=== PATIENT | male | born 1960 | race Caucasian/White ===

== ENCOUNTER → 2020-01-18 | Outpatient (CLI) | payer BC, OTHER ==
[~2020-01-18] VITALS: Ht 185.4 cm; Wt 88.5 kg
[~2020-01-18] MED LIST: CELEBREX 200 M200 M1 PO; SYNTHROID50 MCG PO
[2020-01-18 12:48] VITALS: BP 118/82
--- NOTE | 2020-01-18 13:21 | NUR ---
Pain Clinic Assessment: 1. History of Osteoarthritis: Not Applicable History of Rheumatoid Arthritis: Not Applicable 2. Height: 6 ft. 1 in. 185.4 cm. Weight: 195.0 lb. oz. 88.452 kg. Patient's BMI: 25.7 3. Vital Signs: BP: 118/82 Pulse: 70 Resp: 16 Temp: 02 Sat: 98 ECG Mon: 4. Pain Intensity: 9 5. Fall Risk: Dizziness: N Needs help standing or walking: N Fallen in the last 3 months: N Fall risk comments: 6. Patient on Blood Thinner: None 7. History of Hypertension: N 8. Opioid Therapy greater than 6 weeks: N Opiate Contract Signed: 9. Risk Assessment Tool Provided: 10. Functional Assessment Tool: 11. Recreational Drug Use: Never Drug Type: Tobacco Use: Never Smoker Tobacco Type: Amount or Packs/day: How Many Years: Alcohol Use: Yes Frequency: Weekly Quant: 3
--- NOTE | 2020-01-19 12:32 | HPC ---
[facility] [place] [address] PAIN MANAGEMENT CONSULTATION Name: DAYSITIMAHILDAJohnsonLASHANDA Room #: REG [facility]enniferJennifer#: [id number] Admission: 01/18/20 Attend Phys: Farrukh Benites DO Discharge: Date of : 64 Report #: [id number] THIS REPORT FOR: cc: Tushar Joy II, MD, II,Farrukh Willis MD, DO ~ DATE OF SERVICE: 01/18/2020 REFERRING PHYSICIAN: Dr. Tushar Joy CHIEF COMPLAINT: Low back pain, bilateral lower extremity pain with paresthesias, right greater than left. HISTORY OF PRESENT ILLNESS: As you know, the patient is a very pleasant 59-year-old male who reports a longstanding history of low back pain, right lower extremity pain with paresthesias that began 05/2019. As you are aware, the patient has undergone an L4-L5 interbody fusion through [facility] facility in the past. The patient reports that this procedure did very well at alleviating symptoms. He states he was in his normal state of health when his pain reoccurred and began to progress. He has been dealing with his symptoms with medication management, but is noticing that the effects have begun to wane. He has been referred to our service to discuss treatment options for suspected lumbar radiculopathy. The patient is currently taking hydrocodone for pain control and notes some improvement with the use. The patient reports today his pain is continuous, steady and constant. He describes his pain as aching, gnawing, stabbing, numbness and tingling. He places current pain score 9/10 daily, average is 7-8/10, worst pain has been is 10/10. The patient states that activities tend to exacerbate symptoms. He is improved with rest. He has been referred to our service to discuss treatment options for suspected lumbar radiculopathy. PAST MEDICAL HISTORY: Hypothyroidism. PAST SURGICAL HISTORY: L5 interbody fusion. SOCIAL HISTORY: The patient denies tobacco, alcohol, IV or illicit drug use. He is a director of facilities. He is working, not receiving workmen's compensation or is trying to obtain discrete benefits. He is not in litigation in regards to pain. REVIEW OF SYSTEMS: Positive for fatigue and weakness, wearing corrective eyewear, chronic sinus problems with rhinitis, nocturia, incontinence and dribbling with urine, testicular pain, numbness and tingling sensations. All other review of systems negative per 12-point review of systems other than those [facility] [address] [place] [address] PAIN MANAGEMENT CONSULTATION Name: LASHANDA MARTIN Room #: REG [facility]#: [id number] Admission: 01/18/20 Attend Phys: Farrukh Benites DO Discharge: Date of : 64 Report #: [id number] listed in history of present illness. Pain impact score 32 of 70 indicating moderate interference of daily activities secondary to pain. ALLERGIES: No known drug allergies. CURRENT MEDICATIONS: Celecoxib 200 mg twice a day, levothyroxine 50 mcg per day. IMAGING: MRI lumbar spine obtained 01/01/2020 shows T12-L1, L1-L2 and L2-L3 shows only minimal broad-based posterior disk bulging, no significant central canal neural foraminal stenosis. L3-L4 shows minimal broad-based posterior disk bulging severe bilateral facet arthrosis. No central canal stenosis, only [id number] right and mild left foraminal stenosis due to facet spurring. There is graft material indicating interbody fusion. There is again only severe bilateral facet arthrosis. L5-S1, broad-based posterior disk bulge with superimposed shallow central disk protrusion. There is no mass effect upon the descending nerve roots. There is a superimposed right foraminal disk protrusion which markedly effaces and impinges upon the exiting L5 nerve root. There is resultant right neural foraminal stenosis that is severe in nature. There is moderate to severe left neural foraminal stenosis due to facet arthropathy. PHYSICAL EXAMINATION: VITAL SIGNS: Blood pressure 118/82, pulse is 70, respiratory rate 16 and unlabored. The patient is 98% on room air, height 6 feet 1 inch tall, weight 195 pounds, BMI calculated 25.7. GENERAL: Well-developed, well-nourished, well-hydrated 59-year-old male, who appears stated age, placing current pain score 9/10. HEENT: Normocephalic, atraumatic. Pupils equal, round and reactive to light. Extraocular muscles are intact. Sclerae nonicteric without injection. NEUROLOGIC: Cranial nerves 2-12 grossly intact. Speech is fluent. The patient deemed a good historian. LUNGS: Clear. No wheeze, rhonchi, no rales. CARDIOVASCULAR: Regular. No appreciable gallop, no rub. ABDOMEN: Soft, nontender, nondistended, normoactive bowel sounds. EXTREMITIES: Show no clubbing, no cyanosis, and no edema. MUSCULOSKELETAL: Lower extremity strength equal and symmetrical 5/5. Slight giveaway strength noted with hip flexion, knee extension on the right when compared to left. This is due to pain generation. Supine straight leg raising positive on the right. Savanah's test is negative. Modified Gaenslen's positive for axial low back pain. Ankle clonus negative. Babinski is negative. Gait mildly antalgic favoring right lower extremity over left. Muscle bulk and tone equal and symmetrical in lower extremities. Lumbar provocation testing is met with increase in axial back pain, no radiation of symptoms. ASSESSMENT: 1. Lumbar radiculopathy. [facility] [address] [place] [address] PAIN MANAGEMENT CONSULTATION Name: TEENAMORIAHHILDAJohnsonLASHANDA Room #: REG [facility] Levy.#: [id number] Admission: 01/18/20 Attend Phys: Farrukh Benites DO Discharge: Date of : 64 Report #: [id number] 2. Displacement of lumbar intervertebral disk with radiculopathy. 3. Lumbosacral spondylosis with radiculopathy. 4. Lateral recess stenosis of the lumbar spine. 5. Neural foraminal stenosis of lumbar spine. 6. Lumbar degeneration. 7. Chronic intractable pain. PLAN: 1. Based on today's physical exam and history the patient has provided, the description the patient uses in regards to pain as well as location of symptoms, likely source of the patient's pain is a lumbar radiculopathy. The patient and I discussed the physical findings noted in examination today and correlated those findings to the MRI of the lumbar spine obtained early December. It does appear the patient is suffering from lumbar radiculopathy secondary to the disk displacement and lateral recess as well as neural foraminal stenosis at the L5-S1 level. It does appear that he continues to experience severe facet arthropathy changes at the L4-L5 level, but this has had interbody fusion and thus no longer immobile area. The patient's symptoms do correlate to the L5-S1 level. We spent over 18 minutes of time reviewing the patient's MRI and correlating them to the findings that he has currently. We discussed the treatment options available. Following was discussed. We discussed physical therapy, stretching exercises and core strengthening as a treatment option. We discussed medication management utilizing neuropathic pain medications and anti-inflammatory therapy. We discussed lumbar epidural injections under fluoroscopic guidance, spinal cord stimulator therapy and ultimately surgical decompression. After reviewing the risks and benefits of all the proposed treatment options, the patient chose to undergo lumbar epidural injection under fluoroscopic guidance. 2. The patient will establish an appointment with us tomorrow to undergo a lumbar epidural injection. This will allow us time to confirm whether or not the patient needs any prior authorizations before the procedure is completed and to allow the patient to clear his schedule to be able to go home and rest after the appointment. We have established the patient's appointment for tomorrow afternoon to undergo the first in a series of lumbar epidural injections. 3. No medication changes made at today's visit. The patient will continue current medical therapy as previously prescribed. 4. We will see the patient back in followup visit tomorrow to undergo lumbar epidural injection under fluoroscopic guidance. We will then establish appointment for the patient in 31 days to review the efficacy of that epidural injection. The patient has reported that he has sent recent imaging to his previous neurosurgeon to discuss the options for treatment from a surgical standpoint. He is yet to hear back from that surgeon. We will await that discussion to determine if we need to adjust our treatments. 5. We wish to thank Dr. Tushar Joy for the opportunity to see this patient in consultation. We will keep you apprised of his response to the [address] [place] [address] PAIN MANAGEMENT CONSULTATION Name: LASHANDA MARTIN Room #: REG IV[facility] Robles#: [id number] Admission: 01/18/20 Attend Phys: Farrukh Benites DO Discharge: Date of : 64 Report #: [id number] epidural injection requested. Again, we wish to thank you for the opportunity to see this patient in consultation. <ELECTRONICALLY SIGNED> By: Farrukh Benites DO 01/19/20 1232 [id number] [id number] Farrukh Benites DO /nt
== END ==
LOC: PAIN 06:54
DX: M47.27 Other spondylosis with radiculopathy, lumbosacral region (principal); M51.16 Intervertebral disc disorders with radiculopathy, lumbar region; M48.061 Spinal stenosis, lumbar region without neurogenic claudication

== ENCOUNTER → 2020-01-19 | Outpatient (CLI) | payer BC, OTHER ==
[~2020-01-19] VITALS: Ht 185.4 cm; Wt 86.6 kg
[2020-01-19 14:39] VITALS: BP 118/85
--- NOTE | 2020-01-19 14:42 | NUR ---
Pain Clinic Assessment: 1. History of Osteoarthritis: Not Applicable History of Rheumatoid Arthritis: Not Applicable 2. Height: 6 ft. 1 in. 185.4 cm. Weight: 191.0 lb. oz. 86.637 kg. Patient's BMI: 25.2 3. Vital Signs: BP: 118/85 Pulse: 71 Resp: 14 Temp: 02 Sat: 97 ECG Mon: 4. Pain Intensity: 5 5. Fall Risk: Dizziness: N Needs help standing or walking: N Fallen in the last 3 months: N Fall risk comments: 6. Patient on Blood Thinner: None 7. History of Hypertension: N 8. Opioid Therapy greater than 6 weeks: N Opiate Contract Signed: 9. Risk Assessment Tool Provided: 10. Functional Assessment Tool: 11. Recreational Drug Use: Never Drug Type: Tobacco Use: Never Smoker Tobacco Type: Amount or Packs/day: How Many Years: Alcohol Use: Yes Frequency: Quant:
--- NOTE | 2020-01-25 11:29 | HPC ---
[facility] [place] [address] [place] [address] PAIN MANAGEMENT CONSULTATION Name: TEENAMORIAHLASHANDA HICKS [facility] #[facility] [id number] Admission: 01/19/20 Attend Phys: Farrukh Benites DO Discharge: Date of : 64 Report #: [id number] THIS REPORT FOR: cc: Tushar Joy II, MD, II,Farrukh Willis MD, DO ~ DATE OF SERVICE: 01/19/2020 REFERRING PHYSICIAN: Tushar Joy MD CHIEF COMPLAINT: Low back pain, bilateral lower extremity pain with paresthesias, right greater than left. HISTORY OF PRESENT ILLNESS: As you know, the patient is a 59-year-old pleasant male with longstanding history of low back pain, right lower extremity pain with paresthesias and intermittent left lower extremity pain with paresthesias, began in May 2019. The patient has undergone surgery at the L4-L5 level at the [facility] facility with good relief of symptoms initially, but unfortunately symptoms began about 7 months ago and have progressively worsened. He sought evaluation through his primary care physician who referred the patient to our clinic to discuss interventional treatment options. We saw the patient in consultation on 01/18/2020, diagnosed with lumbar radiculopathy secondary to displacement of lumbar intervertebral disk and was provided today's appointment to undergo a lumbar epidural injection to address lumbar radicular pain. He returns today to undergo the procedure. ALLERGIES: No known drug allergies. CURRENT MEDICATIONS: Celecoxib 200 mg twice daily, levothyroxine 50 mcg per day. SOCIAL HISTORY: The patient denies tobacco, alcohol, IV or illicit drug use. 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 He is working, not receiving workmen's compensation, unaccompanied today. IMAGING: No new imaging available. PHYSICAL EXAMINATION: VITAL SIGNS: Blood pressure 118/85, pulse 71, respiratory rate 14 and unlabored. The patient is 97% on room air. Height 6 feet 1 inch tall, weight 191 pounds and BMI calculated 25.2. GENERAL: Well-developed, well-nourished, well-hydrated 59-year-old male appearing stated age. He is placing current pain score at 5/10. HEENT: Normocephalic, atraumatic. Pupils equal, round and reactive. EXTREMITIES: Show no clubbing, no cyanosis, and no edema. [address] [address] PAIN MANAGEMENT CONSULTATION Name: LASHANDA MARTIN Room #: REG IVY Margaret#: [id number] Admission: 01/19/20 Attend Phys: Farrukh Benites DO Discharge: Date of : 64 Report #: [id number] MUSCULOSKELETAL: Lower extremity strength remains symmetrical again today, 12/27. Slight giveaway strength noted with hip flexion, knee extension on the right when compared to left. Seated straight leg raising negative. Supine straight leg raising positive on the right. Gait appears mildly antalgic favoring right lower extremity over left. No ambulatory devices. ASSESSMENT: 1. Symptomatic lumbar radiculopathy. 2. Displacement of lumbar intervertebral disk with radiculopathy. 3. Lumbosacral spondylosis with radiculopathy. 4. Lateral recess stenosis of the lumbar spine. 5. Neural foraminal stenosis of lumbar spine. 6. Lumbar degeneration. 7. Chronic intractable pain. PLAN: 1. The patient returns today in followup visit having requested a lumbar epidural injection under fluoroscopic guidance. The patient was made today's appointment to undergo the procedure. He can go home from this point and rest and recover from the injection. The patient and I did discuss today the risks and the benefits of this procedure. The following risks were discussed with the patient today. We discussed the risks of the procedure, which include, but are not necessarily limited to bleeding, bruising, infection, worsening pain, no relief of pain, also risk of temporary or permanent muscle weakness, temporary or permanent nerve damage, possible paralysis and . The patient states he understood and wished to proceed. 2. No medication changes made at today's visit. The patient will continue current medical therapy as prior prescribed. 3. We will see the patient back in followup visit on an as needed basis for possible next in the series of epidural injections. We have made the patient a tentative appointment for 31 days from today. At that time, we will discuss the efficacy of today's procedure and determine if next in the series might be necessary. PROCEDURE NOTE DESCRIPTION OF PROCEDURE: L5-S1 right paramedian epidural steroid injection under fluoroscopic guidance. This is the first procedure of the first series that the patient is undergoing. After obtaining written consent, the patient was taken back to the fluoroscopy suite, placed in a prone position with pillow under the abdomen to decrease lumbar lordosis. The skin overlying the lumbosacral area was then prepped and [facility] [address] [place] [address] PAIN MANAGEMENT CONSULTATION Name: LASHANDA MARTIN Room #: SHAUN Lockett.#: [id number] Admission: 01/19/20 Attend Phys: Farrukh Benites DO Discharge: Date of : 64 Report #: [id number] draped in aseptic fashion. The L5-S1 vertebral interspace was then identified by AP fluoroscopy. The skin and subcutaneous tissue overlying the target site of injection was anesthetized with 3 mL 1% lidocaine. A 20-gauge 3.5-inch Tuohy needle was then advanced under fluoroscopic guidance towards the epidural space using a right paramedian approach. The epidural space was identified using loss of resistance to air technique. After negative aspiration for heme or cerebrospinal fluid, a total of 1 mL of Omnipaque was injected. A lumbar epidurogram was confirmed using both AP and lateral fluoroscopy. After negative aspiration for heme or cerebrospinal fluid, 5 mL of a solution containing 2 mL 40 mg/mL, 80 mg total triamcinolone along with 3 mL of lidocaine 1% was injected in increments. Contrast spread was noted posterior epidural space. The needle was then retracted approximately half way and needle tract flushed with 1 mL of 1% lidocaine. Needle was then removed. There were no apparent sensory or motor deficits in the lower extremity following the procedure. A sterile bandage was placed over the injection site. The heart rate, pulse, oximetry and blood pressure were continuously monitored after the procedure. There were no apparent complications. The patient tolerated the procedure well and was carefully escorted to the recovery room in stable condition. There were no apparent complications. After meeting discharge criteria, the patient was then discharged home. <ELECTRONICALLY SIGNED> By: Farrukh Benites DO 01/25/20 1129 0821 [id number] Farrukh Benites, DO /nt
== END ==
LOC: PAIN 06:57
PROVIDERS: ATTEND Anesthesiology Pain Medicine
DX: M51.16 Intervertebral disc disorders with radiculopathy, lumbar region (principal); M48.061 Spinal stenosis, lumbar region without neurogenic claudication; M47.27 Other spondylosis with radiculopathy, lumbosacral region; G89.29 Other chronic pain; Z79.899 Other long term (current) drug therapy

== ENCOUNTER → 2020-03-07 | Outpatient (CLI) | payer BC, OTHER ==
[~2020-03-07] VITALS: Ht 185.4 cm; Wt 87.2 kg
--- NOTE | ~2020-03-07 | HPC ---
[address] [address] PAIN MANAGEMENT CONSULTATION Name: LASHANDA MARTIN [id number] Admission: 03/07/20 Attend Phys: Farrukh Benites DO Discharge: Date of : 64 Report #: [id number] THIS REPORT FOR: cc: Tushar Joy II, MD, II,Farrukh Willis MD, DO ~ CC: Farrukh Joy DATE OF SERVICE: 03/07/2020 CHIEF COMPLAINT: Low back pain, bilateral lower extremity pain with paresthesias, right greater than left. HISTORY OF PRESENT ILLNESS: As you know, the patient is a very pleasant 59-year-old male who was referred to our clinic by his primary care physician, Dr. Tushar Joy for evaluation for lumbar radiculopathy. He is undergoing a lumbar epidural injection under fluoroscopic guidance, 01/25/2020 for which he reports improvement in symptoms of greater than 95%. Unfortunately, the patient became involved in a recent move and exacerbated his symptoms. It also caused a significant right shoulder injury for which he is going to have to undergo surgery next week. He has been cleared by his orthopedic surgeon to be able to undergo lumbar epidural injection to address his lumbar radicular symptoms prior to surgery next week. The patient returns today in followup visit, describing pain level of 3-4/10. States his pain is sharp, aching, tender and sore in sensation, exacerbated with sitting, standing, walking, improves with medications, rest and previous epidural injection. He returns today in followup visit for the second in series. ALLERGIES: No known drug allergies. CURRENT MEDICATIONS: Celecoxib 200 mg twice a day, levothyroxine 50 mcg per day. SOCIAL HISTORY: The patient denies tobacco, alcohol, IV or illicit drug use. He is working, not receiving workmen's compensation, unaccompanied today. IMAGING: No new imaging available. PHYSICAL EXAMINATION: VITAL SIGNS: Blood pressure 137/98, pulse 61, respiratory rate 16 and unlabored. The patient is 100% on room air, height 6 feet 1 inches tall, weight ____ pounds, BMI calculated 25.4. GENERAL: Well-developed, well-hydrated 59-year-old male appearing stated age, pain is rated anywhere from 3-4/10. [address] [address] PAIN MANAGEMENT CONSULTATION Name: LASHANDA MARTIN Room #: REG [facility]#: [id number] Admission: 03/07/20 Attend Phys: Farrukh Benites DO Discharge: Date of : 64 Report #: [id number] HEENT: Normocephalic, atraumatic. Pupils equal, round and reactive. EXTREMITIES: Show no clubbing, no cyanosis, no edema. MUSCULOSKELETAL: Lower extremity strength remains symmetrical. Muscle bulk and tone is symmetrical when comparing left lower extremity to right. Seated straight leg raising negative. Supine straight leg raising positive on the right. Savanah's test negative. ASSESSMENT: 1. Symptomatic lumbar radiculopathy. 2. Displacement of lumbar intervertebral disk with radiculopathy. 3. Lumbosacral spondylosis with radiculopathy. 4. Lateral recess stenosis of lumbar spine. 5. Neural foraminal stenosis of lumbar spine. 6. Lumbar degeneration. 7. Chronic intractable pain. PLAN: 1. The patient returns today in followup visit to undergo lumbar epidural injection under fluoroscopic guidance to address lumbar radiculopathy. The patient did very well with previous epidural injection noticing about 95% improvement in overall pain. Unfortunately, the patient was involved in some very heavy lifting during a recent move and this re-exacerbated his symptoms. It also led to shoulder injury, which is going to require surgical correction. The patient has received authorization from his orthopedic surgeon to be able to undergo lumbar epidural injection to address his lumbar radicular symptoms as this will not interfere with the surgery planned for his right shoulder and there are no concerns of steroid exposure prior to the surgery. The patient has been advised of the other risks and benefits of a lumbar epidural injection. These risks include, but are not necessarily limited to bleeding, bruising, infection, worsening pain, no relief of pain, also risk of temporary or permanent muscle weakness, temporary or permanent nerve damage, possible paralysis and . The patient was also advised of the risks, specifically in regards to COVID-19. Steroid exposures have led to increased risk of raiza COVID-19 as steroids do tend to reduce ones immune response and it is also noted that steroids have exacerbated COVID-19 symptoms if patient actively symptoms. The patient states he understands his risks with COVID-19 and wishes to proceed. 2. No medication changes made at today's visit. The patient will continue current medical therapy as previously prescribed. 3. We will see the patient back in followup visit on an as needed basis for possible third and final epidural injection in the 6 months. PROCEDURE NOTE: DESCRIPTION OF PROCEDURE: L5-S1 right paramedian epidural steroid injection under fluoroscopic guidance. [address] [address] PAIN MANAGEMENT CONSULTATION Name: LASHANDA MARTIN Room #: REG [facility]#: [id number] Admission: 03/07/20 Attend Phys: Farrukh Benites DO Discharge: Date of : 64 Report #: [id number] This is the second procedure of the first series that the patient is undergoing. After obtaining written consent, the patient was taken back to the fluoroscopy suite, placed in a prone position with pillow under the abdomen to decrease lumbar lordosis. The skin overlying the lumbosacral area was then prepped and draped in aseptic fashion. The L5-S1 vertebral interspace was then identified by AP fluoroscopy. The skin and subcutaneous tissue overlying the target site of injection was anesthetized with 3 mL 1% lidocaine. A 20-gauge 3-1/2 inch Tuohy needle was then advanced under fluoroscopic guidance towards the epidural space using a right paramedian approach. The epidural space was identified using loss of resistance to air technique. After negative aspiration for heme or cerebrospinal fluid, a total of 1 mL of Omnipaque was injected. A lumbar epidurogram was confirmed using both AP and lateral fluoroscopy. After negative aspiration for heme or cerebrospinal fluid, 5 mL of a solution containing 2 mL 40 mg per mL, 80 mg total triamcinolone was injected in increments. Contrast spread was noted in posterior epidural space. The needle was then retracted approximately half way and needle tract flushed with 1 mL of 1 mL of 1% lidocaine. Needle was then removed. There were no apparent sensory or motor deficits in the lower extremity following the procedure. A sterile bandage was placed over the injection site. The heart rate, pulse, oximetry and blood pressure were continuously monitored after the procedure. There were no apparent complications. The patient tolerated the procedure well and was carefully escorted to the recovery room in stable condition. There were no apparent complications. After meeting discharge criteria, the patient was then discharged home. By: [id number] Farrukh Benites DO /nt
[2020-03-07 09:06] VITALS: BP 137/98
--- NOTE | 2020-03-07 09:16 | NUR ---
Pain Clinic Assessment: 1. History of Osteoarthritis: BACK History of Rheumatoid Arthritis: Not Applicable 2. Height: 6 ft. 1 in. 185.4 cm. Weight: 192.2 lb. oz. 87.181 kg. Patient's BMI: 25.4 3. Vital Signs: BP: 137/98 Pulse: 61 Resp: 16 Temp: 02 Sat: 100 ECG Mon: 4. Pain Intensity: 3-4 5. Fall Risk: Dizziness: N Needs help standing or walking: N Fallen in the last 3 months: N Fall risk comments: 6. Patient on Blood Thinner: None 7. History of Hypertension: N 8. Opioid Therapy greater than 6 weeks: N Opiate Contract Signed: 9. Risk Assessment Tool Provided: 10. Functional Assessment Tool: 11. Recreational Drug Use: Never Drug Type: Tobacco Use: Never Smoker Tobacco Type: Amount or Packs/day: How Many Years: Alcohol Use: Yes Frequency: Daily Quant: 1-2
== END | disposition home or self-care (01) ==
LOC: PAIN 06:51
PROVIDERS: ATTEND Anesthesiology Pain Medicine
DX: M51.16 Intervertebral disc disorders with radiculopathy, lumbar region (principal); M47.27 Other spondylosis with radiculopathy, lumbosacral region; M48.061 Spinal stenosis, lumbar region without neurogenic claudication; G89.29 Other chronic pain; Z98.890 Other specified postprocedural states; Z79.899 Other long term (current) drug therapy

== ENCOUNTER → 2020-06-27 | Outpatient (CLI) | payer BC, OTHER ==
[~2020-06-27] VITALS: Ht 185.4 cm; Wt 90.4 kg
[2020-06-27 10:26] VITALS: BP 129/91
--- NOTE | 2020-06-27 10:37 | NUR ---
Pain Clinic Assessment: 1. History of Osteoarthritis: BACK History of Rheumatoid Arthritis: Not Applicable 2. Height: 6 ft. 1 in. 185.4 cm. Weight: 199.2 lb. oz. 90.357 kg. Patient's BMI: 26.3 3. Vital Signs: BP: 129/91 Pulse: 64 Resp: 14 Temp: 02 Sat: 100 ECG Mon: 4. Pain Intensity: 4 5. Fall Risk: Dizziness: N Needs help standing or walking: N Fallen in the last 3 months: N Fall risk comments: 6. Patient on Blood Thinner: None 7. History of Hypertension: N 8. Opioid Therapy greater than 6 weeks: N Opiate Contract Signed: 9. Risk Assessment Tool Provided: HEIDI 10. Functional Assessment Tool: 11. Recreational Drug Use: Never Drug Type: Tobacco Use: Never Smoker Tobacco Type: Amount or Packs/day: How Many Years: Alcohol Use: Yes Frequency: Weekly Quant:
--- NOTE | 2020-06-28 11:27 | HPC ---
[facility] [address] [place] [address] PAIN MANAGEMENT CONSULTATION Name: MINHJACQUELYNLASHANDA Room #: REG [facility]..#: [id number] Admission: 06/27/20 Attend Phys: Farrukh Benites DO Discharge: Date of : 64 Report #: [id number] CC: Farrukh Joy DATE OF SERVICE: 06/27/2020 CHIEF COMPLAINT: Low back pain, right lower extremity pain with paresthesias. HISTORY OF PRESENT ILLNESS: As you know, the patient is a very pleasant 60-year-old male returning in followup visit with recurrence of low back pain, right lower extremity pain with paresthesias that he places at a 4/10. The patient reports with the previous epidural injection, he received 90% improvement in overall pain lasting for nearly 3 months. Unfortunately, his symptoms have begun to return. He describes them as chronic burning and dull in sensation, exacerbated with sitting and standing for long periods of time, improves with heat and cold compresses, repositioning and the previous lumbar epidural injection. He has returned today in followup visit to undergo next in the series of epidural injections. He has denied injury or trauma. ALLERGIES: No known drug allergies. CURRENT MEDICATIONS: Celecoxib 200 mg once a day, levothyroxine 50 mcg per day. SOCIAL HISTORY: The patient denies tobacco, alcohol or IV illicit drug use. He is working, not receiving workmen's compensation, unaccompanied today. IMAGING: No new imaging available. PHYSICAL EXAMINATION: VITAL SIGNS: Blood pressure 129/91, pulse is 64, respiratory rate 14 and unlabored. The patient is 100% on room air, height 6 feet 1 inch tall, weight 199.2 pounds, BMI calculated 26.3. GENERAL: Well-developed, well-nourished, well-hydrated 60-year-old male appearing stated age, pain is rated around 4/10. HEENT: Normocephalic, atraumatic. Pupils equal, round and reactive. NEUROLOGIC: Speech fluent. The patient deemed an excellent historian. EXTREMITIES: Show no clubbing, no cyanosis, no edema. MUSCULOSKELETAL: Lower extremity strength equal and symmetrical 5/5. He is intact to light touch from L1 through S2 dermatomes. Seated straight leg raising negative. Supine straight leg raising positive on the right. Gait appears normal. Stance, slightly forward flexed lumbar spine, well-healed surgical scars over the lumbar region. ASSESSMENT: 1. Symptomatic lumbar radiculopathy. 2. Displacement of lumbar intervertebral disk with radiculopathy. 3. Lumbosacral spondylosis with radiculopathy. 4. Lateral recess stenosis of lumbar spine. 5. Neural foraminal stenosis of lumbar spine. 6. Lumbar degeneration. 7. Chronic intractable pain. PLAN: 1. The patient returns today in followup visit having noted 90% improvement in overall pain with the epidural injection provided at the last visit. Unfortunately, his symptoms have begun to return. He is now placing his pain score around 4/10 with symptoms mainly involving low back and right lower extremity. He returns today in followup visit requesting to undergo next in the series of lumbar epidural injections to build on success of previous intervention. The patient denies injury or trauma that may have led to symptom redevelopment. He has had no changes in medical history that would preclude the patient from undergoing an epidural injection today. He has been advised risks and benefits of the procedure, states understood and wished to proceed. 2. No medication changes made at today's visit. The patient will continue current medical therapy as prior prescribed. 3. We plan to see the patient back in followup visit on an as needed basis for possible next in the series of lumbar epidural injections. We are hopeful the patient will see good and prolonged benefit with today's procedure. PROCEDURE NOTE DESCRIPTION OF PROCEDURE: L5-S1 right paramedian epidural steroid injection under fluoroscopic guidance. This is the third procedure of the first series that the patient is undergoing. After obtaining written consent, the patient was taken back to the fluoroscopy suite, placed in a prone position with pillow under the abdomen to decrease lumbar lordosis. The skin overlying the lumbosacral area was then prepped and draped in aseptic fashion. The L5-S1 vertebral interspace was then identified by AP fluoroscopy. The skin and subcutaneous tissue overlying the target site of injection was anesthetized with 3 mL 1% lidocaine. A 20-gauge 3-1/2 Tuohy needle was then advanced under fluoroscopic guidance towards the epidural space using a right paramedian approach. The epidural space was identified using loss of resistance to air technique. After negative aspiration for heme or cerebrospinal fluid, a total of 1 mL of Omnipaque was injected. A lumbar epidurogram was confirmed using both AP and lateral fluoroscopy. After negative aspiration for heme or cerebrospinal fluid, 5 mL of a solution containing 2 mL 40 mg per mL, 80 mg total triamcinolone along with 3 mL of lidocaine 1% was injected in increments. Contrast spread was noted post epidural space. The needle was then retracted approximately half way and needle tract flushed with 1 mL of 1% lidocaine. Needle was then removed. There were no apparent sensory or motor deficits in the lower extremity following the procedure. A sterile bandage was placed over the injection site. The heart rate, pulse, oximetry and blood pressure were continuously monitored after the procedure. There were no apparent complications. The patient tolerated the procedure well and was carefully escorted to the recovery room in stable condition. There were no apparent complications. After meeting discharge criteria, the patient was then discharged home. <ELECTRONICALLY SIGNED> By: Farrukh Benites DO 06/28/20 1127 1204 1305 Farrukh Benites DO /nt
== END | disposition home or self-care (01) ==
LOC: PAIN 06:41
PROVIDERS: ATTEND Anesthesiology Pain Medicine
DX: M51.16 Intervertebral disc disorders with radiculopathy, lumbar region (principal); M47.27 Other spondylosis with radiculopathy, lumbosacral region; M47.26 Other spondylosis with radiculopathy, lumbar region; M48.061 Spinal stenosis, lumbar region without neurogenic claudication; G89.29 Other chronic pain; Z98.890 Other specified postprocedural states; Z79.899 Other long term (current) drug therapy

== ENCOUNTER → 2020-08-15 | Outpatient (CLI) | payer BC, OTHER ==
[~2020-08-15] VITALS: Ht 182.9 cm; Wt 87.3 kg
[~2020-08-15] MED LIST changes: +AMITRIPTYLINE H10 M1 PO
[2020-08-15 08:08] VITALS: BP 124/78
--- NOTE | 2020-08-15 08:18 | NUR ---
Pain Clinic Assessment: 1. History of Osteoarthritis: BACK History of Rheumatoid Arthritis: Not Applicable 2. Height: 6 ft. 0 in. 182.9 cm. Weight: 192.4 lb. oz. 87.272 kg. Patient's BMI: 26.1 3. Vital Signs: BP: 124/78 Pulse: 79 Resp: 16 Temp: 02 Sat: 100 ECG Mon: 4. Pain Intensity: 5-6 5. Fall Risk: Dizziness: N Needs help standing or walking: N Fallen in the last 3 months: N Fall risk comments: 6. Patient on Blood Thinner: None 7. History of Hypertension: N 8. Opioid Therapy greater than 6 weeks: N Opiate Contract Signed: 9. Risk Assessment Tool Provided: HEIDI 10. Functional Assessment Tool: 11. Recreational Drug Use: Never Drug Type: Tobacco Use: Never Smoker Tobacco Type: Amount or Packs/day: How Many Years: Alcohol Use: Yes Frequency: Weekly Quant:
--- NOTE | 2020-08-15 14:29 | HPC ---
[facility] [address] [place] [address] PAIN MANAGEMENT CONSULTATION Name: TEENAMORIAHLASHANDA HICKS Room #: [facility]#: [id number] Admission: 08/15/20 Attend Phys: Liliana Mendoza Discharge: Date of : 64 Report #: [id number] THIS REPORT FOR: cc: Rufino DAI,Tushar Joy II,Tushar Mendoza,Liliana Pope DATE OF SERVICE: 08/15/2020 CHIEF COMPLAINT: Low back pain, right lower extremity pain and paresthesias, lumbar radiculopathy. HISTORY OF PRESENT ILLNESS: As you know, this is a 60-year-old gentleman who returns to the pain clinic today for ongoing pain issues. He reports continued low back pain that radiates into his right lower extremity and right thigh with a burning, dull sensation. He rates this pain as 5-6. He states it is worse with prolonged sitting. He finds if he repositions himself or uses heat has been beneficial. The patient does report that the lumbar epidural steroid injection that Dr. Benites performed in June only afforded him 50% relief for one day. In the past, they had been very beneficial, but have been decreasing efficacy. The patient also reports that the Lyrica that Dr. Farrukh Benites had started gave him significant nightmares and very disturbing dreams. He reports he has been taking 1 at bedtime, but it has been ongoing with sleep disturbances and is wondering about other medication options. ALLERGIES: No known drug allergies. CURRENT LIST OF MEDICATIONS: Levothyroxine. PQRS: 1. He has osteoarthritic changes in his lower back. Denies any rheumatoid arthritis. 2. Height is 6 feet, weight is 182, BMI is 26. 3. Vital signs 124/78, pulse is 79, respirations 16, oxygen sat is 100. 4. Pain score is 5-6. 5. Denies dizziness, does not need help walking or standing, has not fallen in the last 3 months. 6. The patient is not on blood thinners or medicine for hypertension. 7. Opioid therapy is greater than 6 weeks. 8. He is not on any opioids. 9. Risk assessment is low. Functional assessment is . 10. Recreational drug use, he denies. He does not smoke and occasionally drinks alcohol. PHYSICAL EXAMINATION: GENERAL: This is a well-developed, well-nourished, well-hydrated 60-year-old [address] [address] PAIN MANAGEMENT CONSULTATION Name: LASHANDA MARTIN [id number] Admission: 08/15/20 Attend Phys: Liliana Mendoza Discharge: Date of : 64 Report #: [id number] gentleman who appears his stated age, placing his current pain score at 5-6. HEENT: Normocephalic, atraumatic. Pupils equal, round and reactive to light. He is wearing a mask. EXTREMITIES: No clubbing, no cyanosis, no edema. MUSCULOSKELETAL: Supine straight leg raising is positive on the right. He has a normal gait. He has well-healed surgical scars in his lumbar region. Lower extremity strength is symmetrical at 5/5 intact to light touch. ASSESSMENT: 1. Symptomatic lumbar radiculopathy. 2. Displacement of the lumbar intervertebral disk with radiculopathy. 3. Lumbosacral spondylosis with radiculopathy. 4. Lateral recess stenosis of the lumbar spine. 5. Neural foraminal stenosis of lumbar spine. 6. Lumbar degeneration. PLAN: 1. We discussed treatment options with the patient today. Based on the patient's lack of efficacy of his lumbar epidural steroid injection and concerning for change of pathology in his lower back due to increasing pain, I think it is warranted to reorder an MRI of his lumbar spine without contrast. His previous MRI was in December, though he has noticed significant changes since that time. The patient will try to obtain his MRI prior to the end of the year and will call us for results. 2. The patient did not respond well to his Lyrica 100 mg at bedtime, causing significant nightmares with minimal response in his symptoms. The patient has failed gabapentin in the past as well.That medicine caused significant deep dreams and kept him awake at night. We will try a different classification of neuropathic medications of tricyclic antidepressants explained to the patient that this is very beneficial in helping her neuropathic symptoms. We will start him on amitriptyline 10 mg at bedtime, increasing this to 2 tablets after 4 days and then increasing again to 30 mg after another 4 days or when symptoms resolve. The patient told about the side effects regarding this medication. If this medication is not beneficial, we may try Cymbalta. 3. We did discuss epidural steroid injections. The patient would be eligible for another injection in September, we will await MRI results to determine that course of treatment. 4. The patient is seen in collaboration with Dr. Farrukh Benites. <ELECTRONICALLY SIGNED> By: Liliana Mendoza 08/15/20 1429 0900 [id number] Liliana Mendoza /nt
== END ==
LOC: PAIN 06:43
PROVIDERS: ATTEND Clinical Nurse Specialist Adult Health
DX: M51.16 Intervertebral disc disorders with radiculopathy, lumbar region (principal); M47.27 Other spondylosis with radiculopathy, lumbosacral region; M48.061 Spinal stenosis, lumbar region without neurogenic claudication; Z79.891 Long term (current) use of opiate analgesic; Z79.899 Other long term (current) drug therapy

== ENCOUNTER → 2020-09-19 | Outpatient (CLI) | payer BC, OTHER ==
[~2020-09-19] VITALS: Ht 182.9 cm; Wt 92.3 kg
[2020-09-19 12:29] VITALS: BP 139/80
--- NOTE | 2020-09-19 12:34 | NUR ---
Pain Clinic Assessment: 1. History of Osteoarthritis: BACK History of Rheumatoid Arthritis: Not Applicable 2. Height: 6 ft. 0 in. 182.9 cm. Weight: 203.4 lb. oz. 92.262 kg. Patient's BMI: 27.6 3. Vital Signs: BP: 139/80 Pulse: 73 Resp: 18 Temp: 02 Sat: 100 ECG Mon: 4. Pain Intensity: 4 5. Fall Risk: Dizziness: N Needs help standing or walking: N Fallen in the last 3 months: N Fall risk comments: 6. Patient on Blood Thinner: None 7. History of Hypertension: N 8. Opioid Therapy greater than 6 weeks: N Opiate Contract Signed: 9. Risk Assessment Tool Provided: HEIDI 10. Functional Assessment Tool: 11. Recreational Drug Use: Never Drug Type: Tobacco Use: Never Smoker Tobacco Type: Amount or Packs/day: How Many Years: Alcohol Use: Yes Frequency: Weekly Quant: 1-2
--- NOTE | 2020-09-20 16:13 | HPC ---
[facility] [place] [address] PAIN MANAGEMENT CONSULTATION Name: DAYSITIMAHILDAJohnsonLASHANDA Room #: REG [facility]#: [id number] Admission: 09/19/20 Attend Phys: Farrukh Benites DO Discharge: Date of : 64 Report #: [id number] THIS REPORT FOR: cc: Rufino DAI,Tushar Joy II,Tushar Benites,Farrukh Fowler DO ~ DATE OF SERVICE: 09/19/2020 CHIEF COMPLAINT: Low back pain, right lower extremity pain with paresthesias and intermittent left lower extremity pain with paresthesias. HISTORY OF PRESENT ILLNESS: As you know, the patient is a very pleasant 60-year-old male who returns today in followup visit with recurrence of low back pain and right lower extremity pain with paresthesias that has progressively worsened. He has undergone epidural injections with improvement in symptoms, but unfortunately his pain tends to return. He is now experiencing intermittent left lower extremity pain. As you are aware, the patient has significant changes of the neural foramen at the L5-S1 level, the source of his symptoms. Recent imaging dated 08/17/2020 shows progression of the right neural foraminal stenosis to a severe level and on the left to a [id number] level. He returns to discuss options for treatment. He is also requesting an epidural injection under fluoroscopic guidance in hopes of improving pain and to discuss surgical options if appropriate. ALLERGIES: No known drug allergies. CURRENT MEDICATIONS: Levothyroxine 50 mcg per day, amitriptyline 30 mg p.o. at bedtime. SOCIAL HISTORY: The patient denies tobacco, alcohol, IV or illicit drug use. He is working, not receiving workmen's compensation, unaccompanied today. IMAGING: No new imaging available. PHYSICAL EXAMINATION: VITAL SIGNS: Blood pressure 139/80, pulse 73, respiratory rate 18 and unlabored. The patient is 100% on room air, height 6 feet tall, weight 203.4 pounds, BMI calculated 27.6. GENERAL: Well-developed, well-nourished, well-hydrated 59-year-old male appearing stated age, pain is rated around 4/10. HEENT: Normocephalic, atraumatic. Pupils equal, round and reactive. The patient is wearing a mask in compliance with COVID-19 regulations. EXTREMITIES: Show no clubbing, no cyanosis, and no edema. MUSCULOSKELETAL: Lower extremity strength equal and symmetrical again today 5/5. Muscle bulk and tone equal and symmetrical. Seated straight leg raising positive right. Supine straight leg raising positive right. [place] [address] PAIN MANAGEMENT CONSULTATION Name: LASHANDA MARTIN Room #: REG [facility]#: [id number] Admission: 09/19/20 Attend Phys: Farrukh Benites DO Discharge: Date of : 64 Report #: [id number] favoring right lower extremity over left. Ankle clonus negative. Babinski is negative. ASSESSMENT: 1. Symptomatic lumbar radiculopathy. 2. Displacement of lumbar intervertebral disk with radiculopathy. 3. Lumbosacral spondylosis with radiculopathy. 4. 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 5. Lateral recess stenosis of lumbar spine. 6. Lumbar degeneration. 7. Chronic intractable pain. PLAN: 1. The patient returns today in followup visit where we have once again reviewed his MRI from 07/2020 showing changes at the L5-S1 level consistent with the patient's symptoms. He is experiencing constant right lower extremity pain and paresthesias that has progressively worsened and intermittent left lower extremity pain with paresthesias, which are consistent with a severe neural foraminal stenosis noted at the L5-S1 level on the right and the nznpwrhv-yf-[id number] neural foraminal stenosis on the left. We have discussed with the patient the treatment options we have available. They would include physical therapy, medication management with neuropathic medications. We discussed repeating epidural injections, spinal cord stimulator therapy, and ultimately surgical options. After reviewing risks and benefits of all proposed treatment options, the patient chose to begin with a lumbar epidural injection under fluoroscopy at today's treatment and then requests surgical referral. 2. The patient was advised risks and benefits of a lumbar epidural injection. These risks include, but are not necessarily limited to, bleeding, bruising, infection, worsening pain, no relief of pain, also risk of temporary or permanent muscle weakness, temporary or permanent nerve damage, possible paralysis, post-dural puncture headache and . The patient states he understood and wished to proceed. 3. The patient was provided a referral for Neurosurgery consultation. I have advised the patient to obtain imaging on digital form to take to the Neurosurgery consult. He was given a referral to Neurosurgery to follow up at his earliest convenience. He will keep us apprised whether surgical options are entertained. 4. No medication changes made at today's visit. The patient will continue current medical therapy as prior prescribed. 5. We plan to see the patient back in followup visit on an as-needed basis for possible next in the series of epidural injections. DESCRIPTION OF PROCEDURE: L5-S1 parasagittal epidural steroid injection under fluoroscopic guidance. This is the first procedure of the second series that the patient is undergoing. [address] [address] PAIN MANAGEMENT CONSULTATION Name: LASHANDA MARTIN Room #: REG [facility]#: [id number] Admission: 09/19/20 Attend Phys: Farrukh Benites DO Discharge: Date of : 64 Report #: [id number] After obtaining written consent, the patient was taken back to the fluoroscopy suite, placed in a prone position with pillow under the abdomen to decrease lumbar lordosis. The skin overlying the lumbosacral area was then prepped and draped in aseptic fashion. The L5-S1 vertebral interspace was then identified by AP fluoroscopy. The skin and subcutaneous tissue overlying the target site of injection was anesthetized with 3 mL 1% lidocaine. A 20-gauge 3.5-inch Tuohy needle was then advanced under fluoroscopic guidance towards the epidural space using a right parasagittal approach. The epidural space was identified using loss of resistance to air technique. After negative aspiration for heme or cerebrospinal fluid, a total of 1 mL of Omnipaque was injected. A lumbar epidurogram was confirmed using both AP and lateral fluoroscopy. After negative aspiration for heme or cerebrospinal fluid, 5mL of a solution containing 2 mL 40 mg per mL, 80 mg total triamcinolone along with 3 mL lidocaine 1% was injected in increments. Contrast spread was noted in posterior epidural space. The needle was then retracted approximately half way and needle tract flushed with 1 mL of 1% lidocaine. Needle was then removed. There were no apparent sensory or motor deficits in the lower extremity following the procedure. A sterile bandage was placed over the injection site. The heart rate, pulse, oximetry and blood pressure were continuously monitored after the procedure. There were no apparent complications. The patient tolerated the procedure well and was carefully escorted to the recovery room in stable condition. There were no apparent complications. After meeting discharge criteria, the patient was then discharged home. <ELECTRONICALLY SIGNED> By: Farrukh Benites DO 09/20/20 1613 [id number] Farrukh Benites DO /nt
== END | disposition home or self-care (01) ==
LOC: PAIN 06:53
PROVIDERS: ATTEND Anesthesiology Pain Medicine
DX: M51.16 Intervertebral disc disorders with radiculopathy, lumbar region (principal); M48.061 Spinal stenosis, lumbar region without neurogenic claudication; M47.27 Other spondylosis with radiculopathy, lumbosacral region; G89.29 Other chronic pain; Z98.890 Other specified postprocedural states; Z79.899 Other long term (current) drug therapy

== ENCOUNTER → 2021-04-18 | Outpatient (CLI) | payer BC, OTHER ==
[~2021-04-18] VITALS: Ht 182.9 cm; Wt 89.9 kg
--- NOTE | ~2021-04-18 | HPC ---
[facility] [address] [address] [place] [address] PAIN MANAGEMENT CONSULTATION Name: LASHANDA MARTIN Room #: REG [facility].#: [id number] Admission: 04/18/21 Attend Phys: Farrukh Benites DO Discharge: Date of : 64 Report #: [id number] THIS REPORT FOR: cc: Tushar Joy II, MD, II,Farrukh Willis MD, DO ~ cc: Tushar Joy DATE OF SERVICE: 04/18/2021 CHIEF COMPLAINT: Low back pain, right lower extremity pain with paresthesias. HISTORY OF PRESENT ILLNESS: As you know, the patient is a very pleasant 60-year-old male returning in followup visit with recurrence of low back pain, right lower extremity pain with paresthesias. He is placing pain today at a level of 5/10. He returns today requesting a lumbar epidural injection to address lumbar radicular pain. The patient reports previous epidural injection gave improvement in symptoms of about 85%, but unfortunately it was short-lived. As you are aware, the patient has had a full instrumented fusion at the L4-L5 level and is looking towards possible surgical options to address the L5-S1 level. He returns to discuss epidural injections and other treatment options. ALLERGIES: No known drug allergies. CURRENT MEDICATIONS: Levothyroxine 50 mcg once a day. SOCIAL HISTORY: The patient denies tobacco, alcohol or IV or illicit drug use. He is working, not receiving workmen's compensation, unaccompanied today. IMAGING: No new imaging available. PHYSICAL EXAMINATION: VITAL SIGNS: Blood pressure 116/79, pulse 90, respiratory rate 16 and unlabored. The patient is 98% on room air, height 6 feet tall, weight 198.2 pounds, BMI calculated 26.9. GENERAL: Well-developed, well-nourished, well-hydrated 60-year-old male appearing stated age, pain is rated today 5/10. HEENT: Normocephalic, atraumatic. Pupils equal, round and responsive. He is intact to light. He is wearing a mask in compliance with COVID-19 regulations. EXTREMITIES: Show no clubbing, no cyanosis, no edema. MUSCULOSKELETAL: Lower extremity strength equal and symmetrical 5/5 with well-healed surgical scar over the lumbar spine. Seated straight leg raising negative. Supine straight leg raising positive on the right. Gait is normal. Muscle bulk and tone appears equal and symmetrical in lower extremities. ASSESSMENT: 1. Symptomatic [place] [address] PAIN MANAGEMENT CONSULTATION Name: LASHANDA MARTIN Room #: REG [facility]#: [id number] Admission: 04/18/21 Attend Phys: Farrukh Benites DO Discharge: Date of : 64 Report #: [id number] 2. Displacement of lumbar intervertebral disk with radiculopathy. 3. Lateral recess stenosis of lumbar spine. 4. Lumbosacral spondylosis with radiculopathy. 5. Neural foraminal stenosis of lumbar spine. 6. Lumbar degeneration. 7. Chronic intractable pain. PLAN: 1. The patient returns today in followup visit requesting to undergo lumbar epidural injection under fluoroscopic guidance. Most recent epidural injection gave 85% improvement in overall pain, but unfortunately the symptoms were relieved only temporarily. He returns requesting a next in the series of epidural injections in hopes of improving pain. He has been advised risks and benefits of the procedure, states understood and wished to proceed. 2. The patient and I discussed at length, the other treatment options. He is resistant to looking towards medication management given the side effect he has had with Lyrica and prior to that gabapentin. We discussed the possibility of utilizing a spinal cord stimulator to help with pain at present, though this will not change the pathology and the need for ultimately surgery to address his lateral recess stenosis. This is an option for treatment. He is going to consider this option. I gave the patient information both in written and digital form in regards to this issue and this option for treatment. He will review the data and if he is interested in moving forward with a temporary implantation for trial, we would then begin that process. The patient will need to contact our clinic to advise us whether or not he wishes to do so. 3. No medication changes made at today's visit. The patient will continue current medical therapy as prior prescribed. 4. We will see the patient back in followup visit for the next in the series of lumbar epidural injections. If he does choose to move forward with a spinal cord stimulator, we will send him off to discuss his case with Psychiatry. If he is deemed an appropriate candidate from a psychological standpoint, we would then move forward scheduling a trial implantation for the patient to trial the device for a week period of time. DESCRIPTION OF PROCEDURE: L5-S1 right parasagittal epidural steroid injection under fluoroscopic guidance. This is the first procedure of the second series that the patient is undergoing. After obtaining written consent, the patient was taken back to the fluoroscopy suite, placed in a prone position with pillow under the abdomen to decrease lumbar lordosis. The skin overlying the lumbosacral area was then prepped and draped in aseptic fashion. The L5-S1 vertebral interspace was then identified by AP fluoroscopy. The skin and subcutaneous tissue overlying the target site of injection was anesthetized with 3 mL 1% lidocaine. [address] [address] PAIN MANAGEMENT CONSULTATION Name: LASHANDA MARTIN Room #: REG [facility]#: [id number] Admission: 04/18/21 Attend Phys: Farrukh Benites DO Discharge: Date of : 64 Report #: [id number] A 20-gauge 3-1/2 inch Tuohy needle was then advanced under fluoroscopic guidance towards the epidural space using a right parasagittal approach. The epidural space was identified using loss of resistance to air technique. After negative aspiration for heme or cerebrospinal fluid, a total of 1 mL of omnipaque was injected. A lumbar epidurogram was confirmed using both AP and lateral fluoroscopy. After negative aspiration for heme or cerebrospinal fluid, 5 mL of a solution containing 2 mL 40 mg per mL 80 mg total triamcinolone along with 3 mL of lidocaine 1% was injected in increments. Contrast spread was noted in posterior epidural space. The needle was then retracted approximately half way and needle tract flushed with 1 mL of 1% lidocaine. Needle was then removed. There were no apparent sensory or motor deficits in the lower extremity following the procedure. A sterile bandage was placed over the injection site. The heart rate, pulse, oximetry and blood pressure were continuously monitored after the procedure. There were no complications. The patient tolerated the procedure well and was carefully escorted to the recovery room in stable condition. There were no apparent complications. After meeting discharge criteria, the patient was then discharged home. By: [id number] Farrukh Benites DO /reji
[2021-04-18 09:42] VITALS: BP 116/79
--- NOTE | 2021-04-18 09:47 | NUR ---
Pain Clinic Assessment: 1. History of Osteoarthritis: BACK History of Rheumatoid Arthritis: Not Applicable 2. Height: 6 ft. 0 in. 182.9 cm. Weight: 198.2 lb. oz. 89.903 kg. Patient's BMI: 26.9 3. Vital Signs: BP: 116/79 Pulse: 90 Resp: 16 Temp: 02 Sat: 98 ECG Mon: 4. Pain Intensity: 5 5. Fall Risk: Dizziness: N Needs help standing or walking: N Fallen in the last 3 months: N Fall risk comments: 6. Patient on Blood Thinner: None 7. History of Hypertension: N 8. Opioid Therapy greater than 6 weeks: N Opiate Contract Signed: 9. Risk Assessment Tool Provided: HEIDI 10. Functional Assessment Tool: 11. Recreational Drug Use: Never Drug Type: Tobacco Use: Never Smoker Tobacco Type: Amount or Packs/day: How Many Years: Alcohol Use: Yes Frequency: Weekly Quant: 2
== END | disposition home or self-care (01) ==
LOC: PAIN 03-20 07:05
PROVIDERS: ATTEND Anesthesiology Pain Medicine
DX: M51.16 Intervertebral disc disorders with radiculopathy, lumbar region (principal); M47.27 Other spondylosis with radiculopathy, lumbosacral region; M48.061 Spinal stenosis, lumbar region without neurogenic claudication; G89.29 Other chronic pain; Z98.890 Other specified postprocedural states; Z79.899 Other long term (current) drug therapy

== ENCOUNTER → 2021-06-12 | Outpatient (CLI) | payer BC, OTHER ==
[~2021-06-12] VITALS: Ht 182.9 cm; Wt 90.1 kg
[2021-06-12 10:27] VITALS: BP 115/78
--- NOTE | 2021-06-12 10:36 | NUR ---
Pain Clinic Assessment: 1. History of Osteoarthritis: BACK History of Rheumatoid Arthritis: Not Applicable 2. Height: 6 ft. 0 in. 182.9 cm. Weight: 198.6 lb. oz. 90.084 kg. Patient's BMI: 26.9 3. Vital Signs: BP: 115/78 Pulse: 72 Resp: 16 Temp: 02 Sat: 99 ECG Mon: 4. Pain Intensity: 6 5. Fall Risk: Dizziness: N Needs help standing or walking: N Fallen in the last 3 months: N Fall risk comments: 6. Patient on Blood Thinner: None 7. History of Hypertension: N 8. Opioid Therapy greater than 6 weeks: N Opiate Contract Signed: 9. Risk Assessment Tool Provided: HEIDI 10. Functional Assessment Tool: 11. Recreational Drug Use: Never Drug Type: Tobacco Use: Never Smoker Tobacco Type: Amount or Packs/day: How Many Years: Alcohol Use: Yes Frequency: Weekly Quant: 2
--- NOTE | 2021-06-13 08:05 | HPC ---
[facility] [address] [address] PAIN MANAGEMENT CONSULTATION Name: LASHANDA MARTIN Room #: REG [facility]#: [id number] Admission: 06/12/21 Attend Phys: Farrukh Benites DO Discharge: Date of : 64 Report #: [id number] THIS REPORT FOR: cc: FAM - No family physician/PCP FAM - No family physician/PCP Farrukh Benites DO ~ cc: Tushar Joy, Lashanda Hernández MD DATE OF SERVICE: 06/12/2021 CHIEF COMPLAINT: Low back pain, right lower extremity pain, and paresthesias. HISTORY OF PRESENT ILLNESS: As you know, the patient is a very pleasant 61-year-old male returning in followup visit with recurrence of low back pain, right lower extremity pain, and paresthesias. The patient is placing current pain score at a level of 6/10. States the pain is burning, dull, numbness, tingling in its presentation. He is placing pain today at around 6/10, daily average at 6/10, worst pain has been is up to 8/10. The patient states that sitting, heat, cold compresses, repositioning tends to alleviate symptoms along with epidural injections. Walking, lying down tends to exacerbate symptoms. He returns today in followup visit, stating he has surgery planned for Friday of this week to undergo total left shoulder arthroplasty. He is requesting a lumbar epidural injection today to address axial back and lumbar radicular symptoms. The patient denies injury or trauma. He has had no changes in his medication management since our last visit that would preclude him from undergoing an injection today. ALLERGIES: No known drug allergies. CURRENT MEDICATIONS: Levothyroxine 50 mcg once a day. SOCIAL HISTORY: The patient denies tobacco, alcohol, IV, or illicit drug use. He is working, not receiving workmen's compensation, unaccompanied today. IMAGING: No new imaging available. PHYSICAL EXAMINATION: VITAL SIGNS: Blood pressure 115/78, pulse 72, respiratory rate 16 and unlabored. The patient is 99% on room air, height 6 feet tall, weight 198.6 pounds, BMI calculated 26.9. GENERAL: Well-developed, well-nourished, well-hydrated 60-year-old male appearing stated age, pain is rated today as 6/10. HEENT: Normocephalic, atraumatic. Pupils are round. He is wearing a mask in compliance with COVID-19 regulations. EXTREMITIES: Show no clubbing, no cyanosis. No appreciable edema. MUSCULOSKELETAL: Lower extremity strength equal and symmetrical 5/5. Well-healed surgical scar over the lumbar spine. Seated straight leg raising [facility] [address] [place] [address] PAIN MANAGEMENT CONSULTATION Name: LASHANDA MARTIN Room #: REG [facility] Margaret#: [id number] Admission: 06/12/21 Attend Phys: Farrukh Benites DO Discharge: Date of : 64 Report #: [id number] negative. Supine straight leg raising positive on the right about 60-degree angle. Ankle clonus negative. Babinski is negative. Gait appears mildly antalgic favoring right lower extremity over left. Muscle bulk and tone equal and symmetrical in lower extremities. ASSESSMENT: 1. Symptomatic lumbar radiculopathy. 2. Displacement of lumbar intervertebral disk with radiculopathy. 3. Lateral recess stenosis of lumbar spine. 4. Lumbosacral spondylosis with radiculopathy. 5. Neural foraminal stenosis of lumbar spine. 6. Lumbar degeneration. 7. Chronic intractable pain. PLAN: 1. The patient returns today in followup visit, requesting to undergo a lumbar epidural injection under fluoroscopic guidance. Most recent epidural injection according to the patient, gave 90% improvement in overall pain, but unfortunately his symptoms did begin to recur. He is now placing pain score as 6/10. He returns today in followup visit, requesting a lumbar epidural injection under fluoroscopic guidance. He has been advised risks and benefits of the procedure, states he understood and wished to proceed. 2. The patient reports that he is planning to undergo surgery of the left shoulder on 06/15/2021. This is to be performed by Dr. Douglas Quintero at [facility]. We have contacted that physician's nurse, Morales and we were advised by that nurse that we spoke to 11:07, today 06/12/2021 that was acceptable for the patient to undergo a lumbar epidural injection under fluoroscopic guidance with 80 mg triamcinolone prior to the surgery. 3. No medication changes made at today's visit. The patient will continue current medical therapy as prior prescribed. 4. The patient wishes to go ahead and schedule the spinal cord stimulator trial for 4 weeks from today. We will tentatively place the patient on that schedule for that trial, assuming he has no postsurgical issues with the total left shoulder. The patient will need to be in relatively good health to undergo the trial as we want the patient to be as active as possible during the trial to confirm efficacy of the device for his chronic lumbar radiculopathy. We will tentatively set the appointment for 4 weeks to undergo spinal cord stimulator trial implantation. PROCEDURE NOTE: DESCRIPTION OF PROCEDURE: L5-S1 right paramedian epidural steroid injection under fluoroscopic guidance. After obtaining written consent, the patient was taken back to fluoroscopy suite, placed in prone position with pillow under abdomen to decrease lumbar [facility] [address] [place] [address] PAIN MANAGEMENT CONSULTATION Name: LASHANDA MARTIN [facility] [id number] Admission: 06/12/21 Attend Phys: Farrukh Benites DO Discharge: Date of : 64 Report #: [id number] lordosis. Skin overlying lumbosacral area prepped and draped in aseptic fashion. The L5-S1 vertebral interspace was identified by AP fluoroscopy. Skin and subcutaneous tissue overlying target site injection anesthetized with 3 mL 1% lidocaine. A 20 gauge 3-1/2 inch Tuohy needle advanced under fluoroscopic guidance towards the epidural space using a paramedian approach. Epidural space identified using loss of resistance to air technique. After negative aspiration for heme or cerebrospinal fluid, 1 mL of Omnipaque injected. Lumbar epidurogram was confirmed using both AP and lateral fluoroscopy. After negative aspiration for heme or cerebrospinal fluid, 5 mL of solution containing 2 mL 40 mg per mL 80 mg total triamcinolone along with 3 mL of lidocaine 1% injected slowly. Needle retracted snf, flushed with 1 mL of 1% lidocaine, then removed. Sterile bandage placed over injection site. No new motor deficits present in the lower extremities following procedure. The patient tolerated the procedure well, carefully escorted to recovery room in stable condition. No apparent complications. After meeting discharge criteria, the patient discharged home. <ELECTRONICALLY SIGNED> By: Farrukh Benites DO 06/13/21 0805 [id number] Farrukh Benites DO /nt
== END | disposition home or self-care (01) ==
LOC: PAIN 06:59
PROVIDERS: ATTEND Anesthesiology Pain Medicine
DX: M51.16 Intervertebral disc disorders with radiculopathy, lumbar region (principal); M47.27 Other spondylosis with radiculopathy, lumbosacral region; M48.061 Spinal stenosis, lumbar region without neurogenic claudication; G89.29 Other chronic pain; Z98.890 Other specified postprocedural states; Z79.899 Other long term (current) drug therapy

== ENCOUNTER → 2021-07-24 | Outpatient (CLI) | payer BC, OTHER ==
[~2021-07-24] VITALS: Ht 182.9 cm; Wt 88.5 kg
[~2021-07-24] MED LIST changes: +HYDROCODON-ACE1 EAC5 PO
[2021-07-24 07:19] VITALS: BP 135/93
--- NOTE | 2021-07-24 07:24 | NUR ---
Pain Clinic Assessment: 1. History of Osteoarthritis: BACK History of Rheumatoid Arthritis: Not Applicable 2. Height: 6 ft. in. 182.9 cm. Weight: 195.0 lb. oz. 88.452 kg. Patient's BMI: 26.4 3. Vital Signs: BP: 135/93 Pulse: 71 Resp: 16 Temp: 02 Sat: 100 ECG Mon: 4. Pain Intensity: 5 5. Fall Risk: Dizziness: N Needs help standing or walking: N Fallen in the last 3 months: N Fall risk comments: 6. Patient on Blood Thinner: None 7. History of Hypertension: N 8. Opioid Therapy greater than 6 weeks: N Opiate Contract Signed: 9. Risk Assessment Tool Provided: HEIDI 10. Functional Assessment Tool: 11. Recreational Drug Use: Never Drug Type: Tobacco Use: Never Smoker Tobacco Type: Amount or Packs/day: How Many Years: Alcohol Use: Yes Frequency: Quant:
--- NOTE | 2021-07-24 14:34 | HPC ---
[facility] [place] [address] PAIN MANAGEMENT CONSULTATION Name: LASHANDA MARTIN Room #: REG [facility].#: [id number] Admission: 07/24/21 Attend Phys: Farrukh Benites DO Discharge: Date of : 64 Report #: [id number] THIS REPORT FOR: cc: FAM - No family physician/PCP FAM - No family physician/PCP Farrukh Benites DO ~ cc: JONATHAN Noble, Lashanda Hernández MD, [facility] DATE OF SERVICE: 07/24/2021 REFERRING PHYSICIAN: Nurse practitioner, Amarilis Mackey. CHIEF COMPLAINT: Low back pain, right lower extremity pain with paresthesias. HISTORY OF PRESENT ILLNESS: As you know, the patient is a very pleasant 61-year-old male returning in followup visit to undergo a spinal cord stimulator trial implantation to address lumbar radicular symptoms. He is placing his current pain score around 5-7/10 depending on activity. Pain is reported as chronic. He describes the pain as more of a burning, dull, numbness, tingling. Pain is exacerbated with sitting and doing certain activities, improves with heat and cold compresses, repositioning, walking, lying down and previous epidural injections. He returns today for spinal cord stimulator trial implantation. We have received all authorizations for the patient to undergo the procedure. ALLERGIES: No known drug allergies. CURRENT MEDICATIONS: Levothyroxine 50 mcg per day. SOCIAL HISTORY: The patient denies tobacco, alcohol or IV or illicit drug use. He is working, not receiving workmen's compensation, unaccompanied today. IMAGING: No new imaging available. PHYSICAL EXAMINATION: VITAL SIGNS: Blood pressure 135/93, pulse 71, respiratory rate 16 and unlabored. The patient 100% on room air, height 6 feet tall, weight 195 pounds, BMI calculated 26.4. GENERAL: Well-developed, well-nourished, well-hydrated 61-year-old male, appearing stated age, pain is rated today 5/10. HEENT: Normocephalic, atraumatic. Pupils equal, round and responsive. He is wearing a mask in compliance with COVID-19 regulations and hospital policy. EXTREMITIES: Show no clubbing, no cyanosis, no edema. MUSCULOSKELETAL: The patient once again shows a well-healed surgical scar over the lumbar spine consistent with his previous surgical history. Seated straight leg raising negative. Supine straight leg raising positive on the right. TOMMY test is negative. Modified Gaenslen's positive for axial low back pain. Gait [address] [address] PAIN MANAGEMENT CONSULTATION Name: LASHANDA MARTIN Room #: REG [facility]#: [id number] Admission: 07/24/21 Attend Phys: Farrukh Benites DO Discharge: Date of : 64 Report #: [id number] is mildly antalgic favoring right lower extremity over left. Muscle bulk and tone is symmetrical in lower extremities. ASSESSMENT: 1. Symptomatic lumbar radiculopathy. 2. Displacement of lumbar intervertebral disk with radiculopathy. 3. Lateral recess stenosis of lumbar spine. 4. Lumbosacral spondylosis with radiculopathy. 5. Neural foraminal stenosis of lumbar spine. 6. Lumbar degeneration. 7. Chronic intractable pain. PLAN: 1. The patient returns today in followup visit to undergo spinal cord stimulator trial implantation under fluoroscopic guidance. We have received all authorizations for the patient to undergo the procedure. He has successfully completed psychiatric evaluation, which showed no psychopathology that would preclude the patient from undergoing the procedure today. The patient has been advised the risks and benefits of the procedure. These risks include but are not necessarily limited to bleeding, bruising, infection, worsening pain, no relief of pain, also risk of temporary or permanent muscle weakness, temporary or permanent nerve damage, possible paralysis, post-dural puncture headache and . The patient states understood and wished to proceed. 2. No medication changes made at today's visit. The patient will continue current medical therapy as prior prescribed. 3. We will see the patient back in followup visit in 1 week. At that time, review the efficacy of the spinal cord stimulator device implant and determine if moving on with a permanent implant would be recommended. DESCRIPTION OF PROCEDURE: Two-lead spinal cord stimulator trial implantation under fluoroscopic guidance with the Nevro device. After obtaining written consent, a 22-gauge IV Hep-Lock was placed in the patient's left upper extremity. The patient was given 2 grams Ancef IV prophylactic antibiotic infused over 30 minutes prior to procedure. The patient was then taken to the fluoroscopy suite, placed in prone position with 2 pillows under the abdomen to increased thoracic kyphosis and decrease lumbar lordosis. Cardiopulmonary monitoring was established and the patient's vital signs were monitored throughout the procedure. The patient's thoracolumbar spine was prepped and draped with chlorhexidine and draped in a sterile fashion. IV sedation was not necessary prior to procedure. AP fluoroscopic imaging was obtained to identify and caryn the midline position of the T10 through L2 spinous processes. Skin was anesthetized with 7 mL of preservative-free 1% lidocaine on the right and 7 mL of preservative-free lidocaine on the left. A total of 14 mL provided prior to the introduction of [address] [place] [address] PAIN MANAGEMENT CONSULTATION Name: VERONICALASHANDA Room #: REG [facility]#: [id number] Admission: 07/24/21 Attend Phys: Farrukh Benites DO Discharge: Date of : 64 Report #: [id number] the 14-gauge 4-inch Tuohy needles. Our attention was then directed to the right side. Skin entry site was at the proximal level of the L1 vertebral body. The needle was advanced using a paramedian approach to the right of midline approximately 45-degree angle. Loss of resistance to air was utilized to verify placement within the epidural space. Epidural space entered at the T12-L1 interspace. Lateral fluoroscopic view was obtained to confirm the position of the tip of the Tuohy needle within the epidural space. Aspiration noted to be negative for heme or cerebrospinal fluid. The patient did not complain of any pain or paresthesias during needle placement. Spinal cord stimulating lead was then advanced through the Tuohy needle under direct visualization within the midline. The tip of the stimulating lead was aligned with the superior endplate of T8 vertebral body and located within the midline. Our attention was then directed to the left side. The skin entry site on the left was at the approximate level of the L1 vertebral body. The 14-gauge 4-inch Tuohy needle was advanced using a paramedian approach to the left of midline approximately 45-degree angle. Loss of resistance to air was utilized to verify placement with the epidural space. Epidural space entered at the T12-L1 interspace. Lateral fluoroscopic view was obtained to confirm position of the tip of the Tuohy needle within the epidural space. Aspiration was negative for both heme or cerebrospinal fluid. The patient did not complain of pain or paresthesias during needle placement. The spinal cord stimulating lead was then advanced through the Tuohy needle under direct visualization within the midline. The tip of the stimulating lead was aligned with the inferior endplate of T8 vertebral body and located within the midline. The stylets were removed from each of the leads followed by the Tuohy needles. We confirmed positioning of the leads both in AP and lateral imaging to make sure there was no movement during explantation of the stylets or the Tuohy needles. The stimulating leads were then anchored to the patient's back with Mastisol, Steri-Strips and Op-Site bandaging. The patient tolerated the procedure well, carefully escorted to recovery room in stable condition. He was able to move all 4 extremities purposefully after the procedure. The patient was provided 30 minutes of time where programming was performed on the Nevro device. This was done by the Nevro device practice representative. The patient is to contact the device practice representative with any concerns of his typical pain not being covered by the device itself. He was advised to contact the on-call pain physician if he notes increasing back pain, headache, fever, chills, night sweats, excessive drainage from the site or any concerns of potential infection or postsurgical issues. The patient was given [address] [address] PAIN MANAGEMENT CONSULTATION Name: LASHANDA MARTIN Room #: [facility]#: [id number] Admission: 07/24/21 Attend Phys: Farrukh Benites DO Discharge: Date of : 64 Report #: [id number] numbers for both the Nevro device practice representative and the on-call pain physician. After meeting our discharge criteria, the patient was discharged home. <ELECTRONICALLY SIGNED> By: Farrukh Benites DO 07/24/21 1434 [id number] [id number] Farrukh Benites DO /nt
== END | disposition home or self-care (01) ==
LOC: PAIN 06:45
PROVIDERS: ATTEND Anesthesiology Pain Medicine
DX: M51.16 Intervertebral disc disorders with radiculopathy, lumbar region (principal); M47.27 Other spondylosis with radiculopathy, lumbosacral region; M48.061 Spinal stenosis, lumbar region without neurogenic claudication; G89.29 Other chronic pain; Z98.890 Other specified postprocedural states

== ENCOUNTER → 2021-07-31 | Outpatient (CLI) | payer BC, OTHER ==
[~2021-07-31] VITALS: Ht 182.9 cm; Wt 92.7 kg
[~2021-07-31] MED LIST changes: -HYDROCODON-ACE1 EAC5 PO
[2021-07-31 09:03] VITALS: BP 123/97
--- NOTE | 2021-07-31 09:15 | NUR ---
Pain Clinic Assessment: 1. History of Osteoarthritis: BACK History of Rheumatoid Arthritis: Not Applicable 2. Height: 6 ft. 0 in. 182.9 cm. Weight: 204.4 lb. oz. 92.715 kg. Patient's BMI: 27.7 3. Vital Signs: BP: 123/97 Pulse: 90 Resp: 16 Temp: 02 Sat: 100 ECG Mon: 4. Pain Intensity: 2 TO 3 SCS 5. Fall Risk: Dizziness: N Needs help standing or walking: N Fallen in the last 3 months: N Fall risk comments: 6. Patient on Blood Thinner: None 7. History of Hypertension: N 8. Opioid Therapy greater than 6 weeks: N Opiate Contract Signed: 9. Risk Assessment Tool Provided: HEIDI 10. Functional Assessment Tool: 11. Recreational Drug Use: Never Drug Type: Tobacco Use: Never Smoker Tobacco Type: Amount or Packs/day: How Many Years: Alcohol Use: Yes Frequency: Weekly Quant: 2
--- NOTE | 2021-07-31 13:02 | HPC ---
[facility] [place] [address] PAIN MANAGEMENT CONSULTATION Name: LASHANDA MARTIN [id number] Admission: 07/31/21 Attend Phys: Farrukh Benites DO Discharge: Date of : 64 Report #: [id number] THIS REPORT FOR: cc: FAM - No family physician/PCP FAM - No family physician/PCP Farrukh Benites DO ~ cc: JONATHAN Noble, Lashanda Hernández MD DATE OF SERVICE: 07/31/2021 CHIEF COMPLAINT: Low back pain, right lower extremity pain with paresthesias. HISTORY OF PRESENT ILLNESS: As you know, the patient is a very pleasant 61-year-old male who has just completed a spinal cord stimulator trial implantation with the Nevro spinal cord stimulating device with 72 up to 90% improvement in overall pain. He is very pleased with response to the treatment and wishes to move forward with permanent implant. He is very excited about the relief of symptoms he has had over the past week. 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 This device allow him to go through the entire meeting without any worries or pain related issues. He has been able to return to all of his activities of daily living including exercise with the device. He wishes to move forward with permanent implant as quickly as possible. He returns today for explantation of device. ALLERGIES: No known drug allergies. CURRENT MEDICATIONS: Levothyroxine. SOCIAL HISTORY: The patient denies tobacco, alcohol, or IV or illicit drug use. He is working, not receiving workmen's compensation, unaccompanied today. IMAGING: No new imaging available. PHYSICAL EXAMINATION: VITAL SIGNS: Blood pressure 139/97, pulse 90, respiratory rate 16 and unlabored. The patient is 100% on room air, height 6 feet tall, weight 204.4 pounds, BMI calculated 27.7. GENERAL: Well-developed, well-nourished, well-hydrated 61-year-old male, appearing stated age, pain is rated today at 2/10 with the device, 6/10 without the device. HEENT: Normocephalic, atraumatic. Pupils are round. He is in compliance with COVID-19 regulations, wearing a mask. EXTREMITIES: Show no clubbing, no cyanosis, no edema. MUSCULOSKELETAL: There is a well-taped spinal cord stimulating leads with no drainage noted over the lumbar region. [address] [address] PAIN MANAGEMENT CONSULTATION Name: LASHANDA MARTIN [facility] [id number] Admission: 07/31/21 Attend Phys: Farrukh Benites DO Discharge: Date of : 64 Report #: [id number] ASSESSMENT: 1. Symptomatic lumbar radiculopathy. 2. Lumbosacral spondylosis with radiculopathy. 3. Lateral recess stenosis of lumbar spine. 4. Lumbosacral spondylosis with radiculopathy. 5. Neural foraminal stenosis of lumbar spine. 6. Lumbar degeneration. 7. Chronic intractable pain. PLAN: 1. The patient returns today in followup visit, having noted 70-90% improvement in overall pain with the Nevro spinal cord stimulating device implanted last week. The patient was able to return to all activities of daily living without significant pain interference. He is very pleased with response to treatment. He said through a 2-hour board meeting last night, which he was unable to prior without recurrence of pain. He is very pleased with the response for his light activity and his exercise routine. He has been able to return to all of those activities during the week without pain reoccurrence. He wishes to move forward with a permanent implant. He returns today for explantation of device. 2. No medication changes made at today's visit. The patient will continue current medical therapy as prior prescribed. 3. We will transfer the information of the patient's improvement with his spinal cord stimulating device to the implanting physician. I am hopeful the patient will be expedited through the implantation process. He is hopeful to have this device implanted before the end of the year, though given the time-framing, it would be very close, but possible. PROCEDURE NOTE: DESCRIPTION OF PROCEDURE: Explantation of 2 lead Nevro spinal cord stimulating trial implantation. The patient was placed in a seated position. All op-site bandaging was removed as well as the Steri-Strips. There were 2 spinal cord stimulating leads in place. They had not displaced from their original positioning. The leads were removed without complication or paresthesias. Both leads had the [address] in place. There was no drainage or erythema around the insertion sites. His back was cleaned sterilely and a sterile bandage were placed over the injection sites. He is to watch for any concerning findings at the insertion sites themselves, though they appear normal at this point. <ELECTRONICALLY SIGNED> By: Farrukh Benites DO 07/31/21 1302 0905 [id number] Farrukh Benites DO /nt
== END ==
LOC: PAIN 06:55
PROVIDERS: ATTEND Anesthesiology Pain Medicine
DX: M47.26 Other spondylosis with radiculopathy, lumbar region (principal); M47.27 Other spondylosis with radiculopathy, lumbosacral region; M48.061 Spinal stenosis, lumbar region without neurogenic claudication; G89.29 Other chronic pain; M79.661 Pain in right lower leg